=== PATIENT | female | born 1960 | race Caucasian/White ===

== ENCOUNTER 2017-07-18 14:47 | Emergency (ER) | payer MEDICAID, OTHER ==
[~2017-07-18] VITALS: Ht 170.2 cm; Wt 60.0 kg
[~2017-07-18 14:47] MED LIST: ARIC10TA PO; OXYC-360 PO; PRAV20TA67 PO; PREM0.622 PO; SOMA350T PO; XANA2TAB2 PO
[2017-07-18 14:50] VITALS: BP 153/86; PULSE 82; RESP 16; TEMP 97.5; O2SAT 97
[2017-07-18] MEDS ORDERED: SODIUM CHLOR 0.9% 1000 ML INJ 1,000 ML IV ONE (15:12)
[2017-07-18] MEDS ORDERED: diphenhydrAMINE HCL 50 MG/ML VIAL IVP ONE (15:15)
[2017-07-18] MEDS ORDERED: PROCHLORPERAZINE INJ 10 MG/2 ML VIAL IVP ONE (15:15)
[2017-07-18] MEDS ORDERED: SODIUM CHLORIDE 0.9% FLUSH 10 ML FLUSH IVF PRN (15:15)
--- NOTE | 2017-07-18 15:19 | PD ---
HPI Chief Complaint: Headache Time Seen by Provider: 14:59 Travel History International Travel<30 days: No Contact w/Intl Traveler<30days: No Traveled to known affect area: No History of Present Illness HPI 57-year-old female arrives with a complaint of headache. Location is frontotemporal. It has been present for 4 days. 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 No loss of consciousness. The pain is constant severe. She reports using Dilaudid daily for her headache. No fever. Onset gradual. The patient suffers with headaches routinely a few times a month at least. Photophobia is reported PFS Past Medical History Arthritis: Yes Anxiety: Yes Depression: Yes Cancer: Yes (CERVICAL CA) Dementia: Yes (MEMORY LOSS - TAKES ARICEPT) Headaches: Yes Neurologic: Yes (HERNIATED DISCS; BRAIN ANEURYSM) Respiratory: No Migraines: Yes Ulcer: Yes ?: Not Past Surgical History Appendectomy: Yes Cholecystectomy: Yes Hysterectomy: Yes Neurologic Surgery: Yes (aneurysm clamp placed) Tonsillectomy: Yes Social History Alcohol Use: No Tobacco Use: Yes (1 PPD) Substance Use: Yes (MARIJUANA , COCAINE) Allergies-Medications (Allergen,Severity, Reaction): Coded Allergies: acetaminophen (Unverified Allergy, Severe, 07/18/17) codeine (Unverified Allergy, Severe, 07/18/17) penicillin G (Unverified Allergy, Severe, STOP BREATHING, 07/18/17) Reported Meds & Prescriptions Reported Meds & Active Scripts Active Review of Systems Except as stated in HPI: all other systems reviewed are Neg General / Constitutional: No: Fever Physical Exam Narrative GENERAL: 57-year-old female pleasant well-nourished well-developed Vital Signs Date Time Temp Pulse Resp B/P (MAP) Pulse Ox O2 Delivery O2 Flow Rate FiO2 07/18/17 14:59 Room Air 07/18/17 14:50 97.5 82 16 153/86 (108) 97 SKIN: Warm and dry. HEAD: Atraumatic. Normocephalic. EYES: Pupils equal and round. No scleral icterus. No injection or drainage. ENT: No nasal bleeding or discharge. Mucous membranes pink and moist. NECK: Trachea midline. No JVD. Supple. Normal range of motion. CARDIOVASCULAR: Regular rate and rhythm. RESPIRATORY: No accessory muscle use. Clear to auscultation. Breath sounds equal bilaterally. GASTROINTESTINAL: Abdomen soft, non-tender, nondistended. Hepatic and splenic margins not palpable. MUSCULOSKELETAL: Extremities without clubbing, cyanosis, or edema. No obvious deformities. NEUROLOGICAL: Awake and alert. No obvious cranial nerve deficits. Motor grossly within normal limits. Five out of 5 muscle strength in the arms and legs. Normal speech. PSYCHIATRIC: Appropriate mood and affect; insight and judgment normal. Data Data Last Documented VS Vital Signs Date Time Temp Pulse Resp B/P (MAP) Pulse Ox O2 Delivery O2 Flow Rate FiO2 07/18/17 16:05 69 16 134/77 (96) 100 Room Air 07/18/17 14:50 97.5 Orders Orders Complete Blood Count With Diff (07/18/17 15:12) Basic Metabolic Panel (Bmp) (07/18/17 15:12) Ct Brain W/O Iv Contrast(Rout) (07/18/17 15:12) Ecg Monitoring (07/18/17 15:12) Iv Access Insert/Monitor (07/18/17 15:12) Oximetry (07/18/17 15:12) Sodium Chloride 0.9% Flush (Ns Flush) (07/18/17 15:15) Prochlorperazine Inj (Compazine Inj) (07/18/17 15:15) Diphenhydramine Inj (Benadryl Inj) (07/18/17 15:15) Sodium Chlor 0.9% 1000 Ml Inj (Ns 1000 M (07/18/17 15:12) Cta Brain W Iv Contrast W 3d (07/18/17 ) Cta Neck W Iv Contrast W 3d (07/18/17 ) Labs Laboratory Tests Test 07/18/17 15:30 White Blood Count 5.5 TH/MM3 Red Blood Count 5.32 MIL/MM3 Hemoglobin 15.2 GM/DL Hematocrit 45.0 % Mean Corpuscular Volume 84.6 FL Mean Corpuscular Hemoglobin 28.6 PG Mean Corpuscular Hemoglobin Concent 33.8 % Red Cell Distribution Width 14.6 % Platelet Count 301 TH/MM3 Mean Platelet Volume 7.7 FL Neutrophils (%) (Auto) 63.4 % Lymphocytes (%) (Auto) 25.1 % Monocytes (%) (Auto) 10.0 % Eosinophils (%) (Auto) 0.9 % Basophils (%) (Auto) 0.6 % Neutrophils # (Auto) 3.5 TH/MM3 Lymphocytes # (Auto) 1.4 TH/MM3 Monocytes # (Auto) 0.6 TH/MM3 Eosinophils # (Auto) 0.0 TH/MM3 Basophils # (Auto) 0.0 TH/MM3 CBC Comment DIFF FINAL Differential Comment Blood Urea Nitrogen 10 MG/DL Creatinine 0.95 MG/DL Random Glucose 81 MG/DL Calcium Level 9.2 MG/DL Sodium Level 139 MEQ/L Potassium Level 4.0 MEQ/L Chloride Level 103 MEQ/L Carbon Dioxide Level 30.6 MEQ/L Anion Gap 5 MEQ/L Estimat Glomerular Filtration Rate 61 ML/MIN MDM Medical Decision Making Medical Screen Exam Complete: Yes Emergency Medical Condition: Yes Medical Record Reviewed: Yes Differential Diagnosis Aneurysm, subarachnoid bleed, migraine Narrative Course CBC & BMP Diagram 07/18/17 15:30 Calcium Level 9.2 VS reviewed CTA head and CT head pending d/w Dr Negro at 5pm. follow up CT imaging and disposition pending results. Diagnosis Primary Impression: Headache Qualified Codes: R51 - Headache Med/Other Pt SpecificInfo: No Change to Meds Tristan Mcgill MD July 18, 2017 15:19
[2017-07-18 15:37] VITALS: O2SAT 99
[2017-07-18 15:55] LABS: AUTOMATED NEUTROPHIL # 3.5 TH/MM3 (1.8-7.7); BASOPHIL % 0.6 % (0.0-2.0); EOSINOPHIL % 0.9 % (0.0-4.0); HEMOGLOBIN 15.2 GM/DL (11.6-15.3); LYMPH % 25.1 % (9.0-44.0); LYMPHOCYTE # 1.4 TH/MM3 (1.0-4.8); MEAN CELL VOLUME 84.6 FL (80.0-100.0); MEAN CORPUSCULAR HEMOGLOBIN 28.6 PG (27.0-34.0); MEAN CORPUSCULAR HGB CONC 33.8 % (32.0-36.0); MEAN PLATELET VOLUME 7.7 FL (7.0-11.0); MONOCYTE # 0.6 TH/MM3 (0-0.9); NEUT % 63.4 % (16.0-70.0); PLATELET COUNT 301 TH/MM3 (150-450); RED BLOOD COUNT 5.32 MIL/MM3 (4.00-5.30); RED CELL DISTRIBUTION WIDTH 14.6 % (11.6-17.2); WHITE BLOOD COUNT 5.5 TH/MM3 (4.0-11.0)
[2017-07-18 16:05] VITALS: BP 134/77; PULSE 69; RESP 16; O2SAT 100
[2017-07-18 16:08] LABS: BICARBONATE 30.6 MEQ/L (21.0-32.0); CALCIUM 9.2 MG/DL (8.5-10.1); CREATININE 0.95 MG/DL (0.50-1.00)
[2017-07-18] MEDS ORDERED: IOHEXOL 350 MG/ML 10 ML VIAL (for RAD DIAG) IVCONTRAST ONE (17:08)
--- NOTE | 2017-07-18 17:30 | RADRPT ---
EXAM DATE: 07/18/2017 5:23 PM EDT AGE/SEX: 57 years / Female INDICATIONS: Cehpalgia, hit head last week CLINICAL DATA: This is the patient's initial encounter. Patient reports that signs and symptoms have been present for 1 week and indicates a pain score of 4/10. MEDICAL/SURGICAL HISTORY: . Hysterectomy. Aneurysm clip RADIATION DOSE: 27.39 CTDI (mGy) COMPARISON: No prior [facility] exams available for comparison. TECHNIQUE: CT of the head without contrast. Using automated exposure control and adjustment of the mA and/or kV according to patient size, radiation dose was kept as low as reasonably achievable to ob tain optimal diagnostic quality images. FINDINGS: Cerebrum: The ventricles are normal for age. No evidence of midline shift, mass lesion, hemorrhage or acute infarction. No extraaxial fluid collections are seen. Status post previous aneurysm clippin g on the right side. Posterior Fossa: The cerebellum and brainstem are intact. The 4th ventricle is midline. The cerebe llopontine angle is unremarkable. Extracranial: The visualized portion of the orbits is intact. Skull: The calvaria is intact. No evidence of skull fracture. CONCLUSION: 1. No acute intracranial hemorrhage. 2. Status post previous aneurysm clipping on the right side. Electronically signed by: Emmanuel Fernandez MD 07/18/2017 5:29 PM EDT
[2017-07-18 18:45] VITALS: BP 121/83; PULSE 72; RESP 16; O2SAT 97
--- NOTE | 2017-07-18 19:08 | RADRPT ---
EXAM DATE: 07/18/2017 7:02 PM EDT AGE/SEX: 57 years / Female INDICATIONS: Neck pain, hit head last week CLINICAL DATA: This is the patient's initial encounter. Patient reports that signs and symptoms have been present for 1 week and indicates a pain score of 4/10. MEDICAL/SURGICAL HISTORY: . Dementia Hysterectomy. aneurysm clip RADIATION DOSE: 26.35 CTDI (mGy) ; Combined studies COMPARISON: No prior [facility] exams available for comparison. TECHNIQUE: Volumetric scanning was performed using a multi-row detector CT scanner during bolus infu tre of 74 ml Omnipaque 350 (iohexol) nonionic water-soluble contrast as a cumulative dose for multi ple exams. The data was post processed with a variety of visualization algorithms including full vo lume maximum intensity projection, multi-planar sliding thin slab reformation, curved planar reformat ion, and surface rendering techniques. Using automated exposure control and adjustment of the mA and /or kV according to patient size, radiation dose was kept as low as reasonably achievable to obtain o ptimal diagnostic quality images. FINDINGS: Anterior Circulation: Intracranial Carotid Arteries: Patent. SRAVANTHI: There is no evidence for aneurysm, vessel truncation or stenosis, and no evidence for vascular m alformation. MCA: Postsurgical features of prior right MCA aneurysm clipping. No definite residual aneurysm is dem onstrated. There is no evidence for additional aneurysm, vessel truncation or stenosis, and no eviden ce for vascular malformation. Posterior Circulation: Distal Vertebral Arteries: Distal Vertebral arteries are symmetrical and patent. Basilar Artery: There is no evidence for aneurysm, vessel truncation or stenosis, and no evidence for vascular malformation. ANIMAL NUTRITION CONSULTANT and Cerebellar Branches: There is no evidence for aneurysm, vessel truncation or stenosis, and no evidence for vascular malformation. CONCLUSION: 1. Status post right MCA aneurysm clipping. No definite residual aneurysm. 2. Otherwise, unremarkable head CTA exam. Electronically signed by: Bassem Gatica MD 07/18/2017 7:06 PM EDT
--- NOTE | 2017-07-18 19:11 | RADRPT ---
EXAM DATE: 07/18/2017 7:03 PM EDT AGE/SEX: 57 years / Female INDICATIONS: Neck pain, hit head last week CLINICAL DATA: This is the patient's initial encounter. Patient reports that signs and symptoms have been present for 1 week and indicates a pain score of 4/10. MEDICAL/SURGICAL HISTORY: . Dementia Hysterectomy. Aneurysm clip RADIATION DOSE: 26.35 CTDI (mGy) ; Combined studies COMPARISON: No prior [facility] exams available for comparison. TECHNIQUE: Volumetric scanning was performed using a multirow detector CT scanner during bolus infus ion of 74 ml Omnipaque 350 (iohexol) nonionic water-soluble contrast as a cumulative dose for multip le exams. The data was postprocessed with a variety of visualization algorithms including full-volu me maximum intensity projection, multiplanar sliding thin-slab reformation, curved-planar reformation , and surface-rendering techniques. Using automated exposure control and adjustment of the mA and/or kV according to patient size, radiation dose was kept as low as reasonably achievable to obtain opti mal diagnostic quality images. FINDINGS: Aortic Arch: There is a three-vessel origin of the great vessels from the aorta. No evidence of ost ial narrowing Right Carotid: The common carotid artery is intact. The carotid bulb has a normal configuration wit hout ulceration or narrowing. Minimal mixed plaque at the origin of the internal carotid artery with resultant less than 20% stenosis. Internal carotid artery is otherwise patent to the skull base.. Th e external carotid artery is intact. Left Carotid: The common carotid artery is intact. The carotid bulb has a normal configuration with out ulceration or narrowing. The internal carotid artery lumen is smooth without stenosis. The exte rnal carotid artery is intact. Vertebrals: The vertebral arteries have a symmetric diameter. No stenotic lesions are seen. General Findings: Lung apices demonstrate mild to moderate centrilobular emphysema. Thyroid is unrema rkable by CT. No significant adenopathy. Elevated flow velocities and ICA/CCA ratios have been found to correlate with increased degrees of ve ssel stenosis, calculated as percentage of diameter relative to a normal segment of distal ICA/CCA. CONCLUSION: 1. Minimal mixed plaque at the origin of the right internal carotid artery with resultant less than 20% stenosis. 2. No evidence for carotid dissection or significant flow-limiting stenosis. 3. Patent vertebral arteries bilaterally. 4. Mild to moderate biapical centrilobular emphysema. Electronically signed by: Bassem Gatica MD 07/18/2017 7:10 PM EDT
--- NOTE | 2017-07-18 21:05 | PD ---
Data Data Last Documented VS Vital Signs Date Time Temp Pulse Resp B/P (MAP) Pulse Ox O2 Delivery O2 Flow Rate FiO2 07/18/17 18:45 72 16 121/83 (96) 97 Room Air 07/18/17 14:50 97.5 Orders Orders Complete Blood Count With Diff (07/18/17 15:12) Basic Metabolic Panel (Bmp) (07/18/17 15:12) Ct Brain W/O Iv Contrast(Rout) (07/18/17 15:12) Ecg Monitoring (07/18/17 15:12) Iv Access Insert/Monitor (07/18/17 15:12) Oximetry (07/18/17 15:12) Sodium Chloride 0.9% Flush (Ns Flush) (07/18/17 15:15) Prochlorperazine Inj (Compazine Inj) (07/18/17 15:15) Diphenhydramine Inj (Benadryl Inj) (07/18/17 15:15) Sodium Chlor 0.9% 1000 Ml Inj (Ns 1000 M (07/18/17 15:12) Cta Brain W Iv Contrast W 3d (07/18/17 ) Cta Neck W Iv Contrast W 3d (07/18/17 ) Iohexol 350 Inj (Omnipaque 350 Inj) (07/18/17 17:08) Labs Laboratory Tests Test 07/18/17 15:30 White Blood Count 5.5 TH/MM3 Red Blood Count 5.32 MIL/MM3 Hemoglobin 15.2 GM/DL Hematocrit 45.0 % Mean Corpuscular Volume 84.6 FL Mean Corpuscular Hemoglobin 28.6 PG Mean Corpuscular Hemoglobin Concent 33.8 % Red Cell Distribution Width 14.6 % Platelet Count 301 TH/MM3 Mean Platelet Volume 7.7 FL Neutrophils (%) (Auto) 63.4 % Lymphocytes (%) (Auto) 25.1 % Monocytes (%) (Auto) 10.0 % Eosinophils (%) (Auto) 0.9 % Basophils (%) (Auto) 0.6 % Neutrophils # (Auto) 3.5 TH/MM3 Lymphocytes # (Auto) 1.4 TH/MM3 Monocytes # (Auto) 0.6 TH/MM3 Eosinophils # (Auto) 0.0 TH/MM3 Basophils # (Auto) 0.0 TH/MM3 CBC Comment DIFF FINAL Differential Comment Blood Urea Nitrogen 10 MG/DL Creatinine 0.95 MG/DL Random Glucose 81 MG/DL Calcium Level 9.2 MG/DL Sodium Level 139 MEQ/L Potassium Level 4.0 MEQ/L Chloride Level 103 MEQ/L Carbon Dioxide Level 30.6 MEQ/L Anion Gap 5 MEQ/L Estimat Glomerular Filtration Rate 61 ML/MIN MDM Supervised Visit with [facility]: No Narrative Course This case is checked out to me by Dr. Mcgill. I have reviewed the entirety of the workup. I reviewed with the patient. When I went in to evaluate her she was sound asleep. Her pain is gone. CT is negative for bleeding CTA is negative for aneurysm or any leak. It does show her clipped aneurysm which is stable. Her labs are normal She is stable for outpatient follow-up Diagnosis Primary Impression: Headache Qualified Codes: R51 - Headache Additional Impression: History of cerebral aneurysm repair Additional Instruction: The patient was advised to follow up with their physician and return if they worsen. Med/Other Pt SpecificInfo: Other Disposition: 01 DISCHARGE HOME Condition: Stable Maycol Negro MD July 18, 2017 21:05
== END 2017-07-18 21:43 | disposition home or self-care (01) ==
LOC: NEPD 14:47
DX: R51 Headache (principal); F12.90 Cannabis use, unspecified, uncomplicated; F17.200 Nicotine dependence, unspecified, uncomplicated
CPT/HCPCS: 70450; 70496; 70498; 80048; 85025; 96361; 96374; 96375; 99285; J0780; J1200; J7030; Q9967